=== PATIENT | female | born 1950 | race Caucasian/White ===

== ENCOUNTER 2016-03-27 12:17 | Observation (INO) | payer BC ==
[~2016-03-27] VITALS: Ht 165.1 cm; Wt 75.0 kg
[2016-03-27] MEDS ORDERED: LANTUS100 U/ML SQ ×2 (12:23→18:17)
[2016-03-27] MEDS ORDERED: HUMALOG100 U/ML SQ (12:23)
[2016-03-27] MEDS ORDERED: ASPIRIN 81M81 MG/TA2 (12:23)
[2016-03-27] MEDS ORDERED: COREG 3.123.125 MG/T PO (12:23)
[2016-03-27] MEDS ORDERED: ZOCOR5 MG (12:23)
[2016-03-27] MEDS ORDERED: LASIX 20MG TABL20 MG PO (12:24)
[2016-03-27 13:39] LABS: BASO % 0.3 % (0.0-2.0); EOS # 0.1 (0.0-0.7); EOS % 0.8 % (0-4.0); GRAN # 10.9 (1.4-6.5); GRAN % 83.4 % (42.2-75.2); LYMPH # 1.2 (1.2-3.4); LYMPH % 9.1 % (20.0-51.0); MEAN CELL VOLUME 86 fl (80.0-100.0); MEAN CORPUSCULAR HGB CONC 32 g/dl (33.0-37.0); MONO # 0.8 (0.1-0.6); MONO % 6.1 % (1.7-9.3); PLATELET COUNT 311 K/mm3 (130-400); RED BLOOD COUNT 3.59 M/mm3 (4.10-5.30); REDCELL DISTRIBUTION WIDTH-CV 14.4 % (11.5-14.5)
[2016-03-27 13:40] LABS: HEMATOCRIT 30.9 % (37.0-47.0); HEMOGLOBIN 9.8 g/dl (12.5-16.0); MEAN CORPUSCULAR HEMOGLOBIN 27 pg (27.0-31.0)
[2016-03-27 13:52] LABS: ADJUSTED CALCIUM 9.6 mg/dL (8.4-10.2); ALBUMIN 3.6 gm/dL (3.5-5.0); BILIRUBIN,TOTAL 0.6 mg/dL (0.0-1.0); CALCIUM 9.3 mg/dL (8.4-10.2); CREATININE, serum 1.98 mg/dL (0.52-1.25); POTASSIUM 4.4 mmol/L (3.4-5.0); TOTAL PROTEIN 7.7 gm/dL (6.4-8.2)
[2016-03-27 14:24] LABS: PH 5 (5-8); SQUAMOUS EPITHELIAL 0-2 /hpf; URINE APPEARANCE Clear; URINE BACTERIA Rare /hpf; URINE BILIRUBIN Negative (NEGATIVE); URINE BLOOD Negative (NEGATIVE); URINE COLOR Yellow; URINE GLUCOSE Negative (NEGATIVE); URINE KETONE Negative (NEGATIVE); URINE RBC None Seen /hpf; URINE UROBILINOGEN Negative (NEGATIVE); URINE WBC 0-2 /hpf
[2016-03-27] MEDS ORDERED: ZOCOR 40MG40 MG PO (17:45)
[2016-03-27] MEDS ORDERED: KLOR-CON M2020 MEQ PO (17:47)
[2016-03-27] MEDS ORDERED: VASOTEC 2.2.5 MG/TAB PO (17:50)
[2016-03-27] MEDS ORDERED: BRILINTA90 MG PO (17:53)
[2016-03-27] MEDS ORDERED: NITROSTAT0.4 MG/TAB SL (17:54)
[2016-03-27] MEDS ORDERED: LASIX 40MG TABL40 MG PO (18:18)
[2016-03-27 18:32] VITALS: BP 125/55; PULSE 70; TEMP 98.2
[2016-03-27 19:55] VITALS: BP 128/53; PULSE 81; TEMP 97.9
[2016-03-27 23:54] VITALS: BP 113/56; PULSE 83; TEMP 98.4
[2016-03-28] VITALS (7 sets, daily range): BP systolic 106–142; BP diastolic 39–91; PULSE 73–91; TEMP 97.5–98.3
[2016-03-28 07:43] LABS: BASO % 0.2 % (0.0-2.0); EOS # 0.1 (0.0-0.7); EOS % 1.4 % (0-4.0); GRAN # 7.2 (1.4-6.5); GRAN % 76.9 % (42.2-75.2); LYMPH # 1.2 (1.2-3.4); LYMPH % 12.9 % (20.0-51.0); MEAN CELL VOLUME 86 fl (80.0-100.0); MEAN CORPUSCULAR HGB CONC 32 g/dl (33.0-37.0); MEAN PLATELET VOLUME 11.2 fl (7.4-10.4); MONO # 0.8 (0.1-0.6); MONO % 8.2 % (1.7-9.3); PLATELET COUNT 248 K/mm3 (130-400); REDCELL DISTRIBUTION WIDTH-CV 14.5 % (11.5-14.5); WHITE BLOOD COUNT 9.3 K/mm3 (4.8-10.8)
[2016-03-28 07:46] LABS: HEMATOCRIT 28.5 % (37.0-47.0); HEMOGLOBIN 9.1 g/dl (12.5-16.0); MEAN CORPUSCULAR HEMOGLOBIN 28 pg (27.0-31.0)
[2016-03-28 07:56] LABS: CALCIUM 8.7 mg/dL (8.4-10.2); CREATININE, serum 1.41 mg/dL (0.52-1.25); POTASSIUM 4.1 mmol/L (3.4-5.0)
[2016-03-29] VITALS: BP 91/41; PULSE 79; TEMP 98.8
[2016-03-29 03:24] VITALS: BP 134/54; PULSE 74; TEMP 98.4
[2016-03-29 07:43] VITALS: BP 125/60; PULSE 72; TEMP 98.9
[2016-03-29] MEDS ORDERED: NOVOLOG FLEX100 U/ML SQ (09:18)
[2016-03-29 11:25] VITALS: BP 136/54; PULSE 80; TEMP 98.5
[2016-03-29 11:40] LABS: MEAN CELL VOLUME 89 fl (80.0-100.0); MEAN CORPUSCULAR HGB CONC 31 g/dl (33.0-37.0); MEAN PLATELET VOLUME 11.3 fl (7.4-10.4); PLATELET COUNT 290 K/mm3 (130-400); RED BLOOD COUNT 3.58 M/mm3 (4.10-5.30); REDCELL DISTRIBUTION WIDTH-CV 14.7 % (11.5-14.5)
[2016-03-29 11:41] LABS: HEMATOCRIT 31.9 % (37.0-47.0); HEMOGLOBIN 9.8 g/dl (12.5-16.0); MEAN CORPUSCULAR HEMOGLOBIN 27 pg (27.0-31.0)
[2016-03-29 11:59] LABS: CALCIUM 8.9 mg/dL (8.4-10.2); CREATININE, serum 1.16 mg/dL (0.52-1.25); POTASSIUM 4.2 mmol/L (3.4-5.0)
[2016-03-29] MEDS ORDERED: LASIX 40MG TABL40 MG PO (14:18)
[2016-03-29] MEDS ORDERED: KLOR-CON M2020 MEQ PO (14:19)
== END 2016-03-29 16:08 | disposition home or self-care (01) ==
LOC: COL.ER 12:17 → MEDICAL 15:31
PROVIDERS: Emergency Medicine; Internal Medicine; Nurse Practitioner Family
DX: E86.0 Dehydration (principal); I12.9 Hypertensive chronic kidney disease with stage 1 through stage 4 chronic kidney disease, or unspecified chronic kidney disease; E11.22 Type 2 diabetes mellitus with diabetic chronic kidney disease; N18.3 Chronic kidney disease, stage 3 (moderate); Z79.4 Long term (current) use of insulin; D53.9 Nutritional anemia, unspecified; I25.10 Atherosclerotic heart disease of native coronary artery without angina pectoris; I25.2 Old myocardial infarction; E78.5 Hyperlipidemia, unspecified; K21.9 Gastro-esophageal reflux disease without esophagitis; R53.81 Other malaise; D63.1 Anemia in chronic kidney disease; E11.40 Type 2 diabetes mellitus with diabetic neuropathy, unspecified; Z95.5 Presence of coronary angioplasty implant and graft; Z86.73 Personal history of transient ischemic attack (TIA), and cerebral infarction without residual deficits; Z95.810 Presence of automatic (implantable) cardiac defibrillator; Z79.82 Long term (current) use of aspirin; Z79.899 Other long term (current) drug therapy
CPT/HCPCS: 99232-AI; 99239; G0378; G8978-GP; G8979-GP; G8987-GO; G8988-GO; J1815; J7030; J7040